=== PATIENT | male | born 1995 ===

== ENCOUNTER 2016-08-28 01:14 | Emergency (ER) | payer SELFPAY ==
[2016-08-28 02:10] VITALS: RESP 16
[2016-08-28] MEDS ORDERED: Bacitracin 500 Units/gm Oint Foilpak UD TOP ONE (03:02)
[2016-08-28] MEDS ORDERED: Bacitracin 500 Units/gm Oint Foilpak UD ONE (03:03)
[2016-08-28 04:25] VITALS: BP 113/70; PULSE 89; TEMP 97.9; O2SAT 97
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
--- NOTE | 2016-08-28 10:46 | RAD ---
PROCEDURE: Right Index finger radiographs. HISTORY: r/o fx COMPARISON: None. TECHNIQUE: AP radiograph of the right hand, as well as spot oblique and lateral images of index finger were obtained. FINDINGS: RIGHT INDEX FINGER: Normal right index finger, without fracture or focal lesion. Remainder of the right hand (as seen on the AP view) grossly intact. JOINTS: Normal. SOFT TISSUES: Normal. OTHER FINDINGS: None. IMPRESSION: No acute fracture or dislocation.
== END 2016-08-28 04:25 | disposition home or self-care (01) ==
LOC: C.ER 01:14
DX: S61.200A Unspecified open wound of right index finger without damage to nail, initial encounter (principal); Z23 Encounter for immunization